=== PATIENT | male | born 1955 | race Caucasian/White ===

== ENCOUNTER 2024-03-06 18:40 | Emergency (ER) | payer MEDICARE, OTHER | END 2024-03-06 22:10 | disposition left against medical advice (07) | LOC: MADERS 18:40 | DX: R33.9 Retention of urine, unspecified (principal); E11.9 Type 2 diabetes mellitus without complications; I11.0 Hypertensive heart disease with heart failure; I50.9 Heart failure, unspecified; Z79.899 Other long term (current) drug therapy | CPT/HCPCS: 99283 ==